=== PATIENT | female | born 1975 | race Caucasian/White ===

== ENCOUNTER → 2016-12-31 | Outpatient (CLI) | payer MEDICAID ==
[2016-12-31 17:02] LABS: BASO % 0.4 % (0.0-2.0); EOS # 0.1 (0.0-0.7); EOS % 0.9 % (0-4.0); GRAN # 5.8 (1.4-6.5); GRAN % 63.3 % (42.2-75.2); HEMATOCRIT 42.2 % (37.0-47.0); HEMOGLOBIN 14.2 g/dl (12.5-16.0); LYMPH # 2.6 (1.2-3.4); LYMPH % 28.4 % (20.0-51.0); MEAN CELL VOLUME 90 fl (80.0-100.0); MEAN CORPUSCULAR HEMOGLOBIN 30 pg (27.0-31.0); MEAN CORPUSCULAR HGB CONC 34 g/dl (33.0-37.0); MEAN PLATELET VOLUME 11.3 fl (7.4-10.4); MONO # 0.6 (0.1-0.6); MONO % 6.8 % (1.7-9.3); PLATELET COUNT 321 K/mm3 (130-400); RED BLOOD COUNT 4.68 M/mm3 (4.10-5.30); WHITE BLOOD COUNT 9.1 K/mm3 (4.8-10.8)
[2016-12-31 17:14] LABS: ADJUSTED CALCIUM 9.5 mg/dL (8.4-10.2); ALBUMIN 4.3 gm/dL (3.5-5.0); BILIRUBIN,TOTAL 0.6 mg/dL (0.0-1.0); CALCIUM 9.7 mg/dL (8.4-10.2); CHOLESTEROL RISK RATIO 4.3; CREATININE, serum 0.77 mg/dL (0.52-1.25); POTASSIUM 3.9 mmol/L (3.4-5.0); TOTAL PROTEIN 7.4 gm/dL (6.4-8.2)
[2016-12-31 17:28] LABS: HIV 1/2 Antibodies Non-Reactive; HIV-1p24 Antigen Non-Reactive
[2016-12-31 17:44] LABS: TSH w REFLEX 1.64 uIU/mL (0.465-4.680)
[2017-01-01 02:11] LABS: RPR (VDRL) Non-reactive (())
== END ==
LOC: COL.LAB 15:14
PROVIDERS: Family Medicine
DX: Z11.3 Encounter for screening for infections with a predominantly sexual mode of transmission (principal); F32.9 Major depressive disorder, single episode, unspecified; Z83.79 Family history of other diseases of the digestive system

== ENCOUNTER → 2018-03-12 | Outpatient (CLI) | payer MEDICAID | LOC: ZCOL.LAB 18:25 | DX: N89.8 Other specified noninflammatory disorders of vagina (principal) ==

== ENCOUNTER → 2018-04-15 | Outpatient (CLI) | payer BC, MEDICAID | LOC: MC.RAD 10:56 | DX: R92.2 Inconclusive mammogram (principal) | CPT/HCPCS: G0279 ==

== ENCOUNTER 2018-05-26 20:38 | Emergency (ER) | payer MEDICAID ==
[~2018-05-26] VITALS: Ht 175.3 cm; Wt 109.1 kg
[2018-05-26 20:40] VITALS: BP 130/92; TEMP 98
[2018-05-26 21:52] LABS: COLLECTION METHOD CLEAN CATCH
[2018-05-26 22:06] LABS: MUCOUS Present /lpf; PH 5 (5-8); URINE APPEARANCE Hazy; URINE BACTERIA None Seen /hpf; URINE BILIRUBIN Negative (NEGATIVE); URINE BLOOD 1+ (NEGATIVE); URINE COLOR Yellow; URINE GLUCOSE Negative (NEGATIVE); URINE KETONE Negative (NEGATIVE); URINE LEUKOCYTE ESTERASE Negative (NEGATIVE); URINE NITRATE Negative (NEGATIVE); URINE PROTEIN(semi-quant) Negative (NEGATIVE); URINE UROBILINOGEN Negative (NEGATIVE)
[2018-05-26] MEDS ORDERED: ZITHROMAX Z PA250 MG PO (22:13)
[2018-05-26 22:44] VITALS: PULSE 90
== END 2018-05-26 23:26 | disposition home or self-care (01) ==
LOC: COL.ER 20:38
PROVIDERS: Physician Assistant
DX: J06.9 Acute upper respiratory infection, unspecified (principal)

== ENCOUNTER 2019-04-15 06:04 | Day surgery (SDC) | payer BC ==
[~2019-04-15] VITALS: Ht 175.3 cm; Wt 116.5 kg
[~2019-04-15 06:04] MED LIST: ZITHROMAX Z PA250 MG PO
[2019-04-15 06:36] VITALS: BP 141/84; PULSE 69; TEMP 97.6
[2019-04-15] MEDS ORDERED: CELEXA40 MG PO (06:51)
[2019-04-15] MEDS ORDERED: PRIL40 PO (06:52)
--- NOTE | 2019-04-15 06:54 | NUR ---
TO RM 1 AT 0620- CALL LIGHT IN REACH AUNT AND UNCLE HERE TO TAKE PATIENT HOME
[2019-04-15 07:55] VITALS: BP 135/87; PULSE 77; TEMP 97.6
--- NOTE | 2019-04-15 07:55 | NUR ---
Patient arrives to [facility] via cart, accompanied by [facility] RN Britt. Bedside report received. She is drowsy, easily aroused to voice. She ambulates with 2:1 assist to the chair in the room. Monitoring is applied - VSS on room air. Lights are dimmed, given a warm blanket, reclined in chair for comfort. Her aunt is at the bedside. Call light in reach.
[2019-04-15 08:10] VITALS: BP 127/88; PULSE 66
--- NOTE | 2019-04-15 08:10 | NUR ---
VSS and WNL on room air. Patient remains very sleepy. She is easily aroused to voice. She denies pain or nausea. She is offered and receives water and ice cream to eat. Will continue to monitor.
[2019-04-15 08:25] VITALS: BP 141/60; PULSE 68
--- NOTE | 2019-04-15 08:25 | NUR ---
Patient is more alert. Sitting up in chair, awake, chatting with family. She requests and receives more ice cream and water. Denies pain, nausea, or need.
[2019-04-15 08:40] VITALS: BP 143/90; PULSE 66
--- NOTE | 2019-04-15 09:10 | NUR ---
0840 Dr. Murray is at the bedside and talks with the patient. 0850 PIV removed with catheter intact and hemostasis achieved. 0910 Patient has met discharge criteria. Discharge instructions discussed, denies any questions, and verbalizes understanding. Changes to clothing independently. Escorted to exit via wheelchair by staff. Discharged to home with ride in private vehicle at 0910.
== END 2019-04-15 09:10 | disposition home or self-care (01) ==
LOC: SDCO 06:04
DX: K57.30 Diverticulosis of large intestine without perforation or abscess without bleeding (principal); K92.1 Melena; R19.7 Diarrhea, unspecified; K64.1 Second degree hemorrhoids; K22.10 Ulcer of esophagus without bleeding; K21.0 Gastro-esophageal reflux disease with esophagitis; D13.0 Benign neoplasm of esophagus; K25.7 Chronic gastric ulcer without hemorrhage or perforation
CPT/HCPCS: J2250; J3010

== ENCOUNTER 2020-04-08 16:51 | Emergency (ER) | payer BC ==
[~2020-04-08] VITALS: Ht 175.3 cm; Wt 97.7 kg
[~2020-04-08 16:51] MED LIST changes: +CELEXA40 MG PO; +PRIL40 PO
[2020-04-08 16:58] VITALS: TEMP 97.2
[2020-04-08] MEDS ORDERED: OTEZLA PO (17:11)
[2020-04-08] MEDS ORDERED: TOPROL XL 25MG25 MG (17:12)
[2020-04-08] MEDS ORDERED: ASPIRIN 81M81 MG/TA2 PO (17:12)
[2020-04-08 17:28] LABS: BASO # 0.1 (0.0-0.2); BASO % 0.6 % (0.0-2.0); EOS # 0.2 (0.0-0.7); EOS % 1.3 % (0-4.0); GRAN # 7.4 (1.4-6.5); GRAN % 61.7 % (42.2-75.2); HEMOGLOBIN 11.3 g/dl (12.5-16.0); LYMPH # 3.6 (1.2-3.4); LYMPH % 29.8 % (20.0-51.0); MEAN CELL VOLUME 82 fl (80.0-100.0); MEAN CORPUSCULAR HEMOGLOBIN 26 pg (27.0-31.0); MEAN CORPUSCULAR HGB CONC 32 g/dl (33.0-37.0); MEAN PLATELET VOLUME 9.4 fl (7.4-10.4); MONO # 0.8 (0.1-0.6); MONO % 6.3 % (1.7-9.3); PLATELET COUNT 440 K/mm3 (130-400); RED BLOOD COUNT 4.32 M/mm3 (4.10-5.30); REDCELL DISTRIBUTION WIDTH-CV 14.2 % (11.5-14.5)
[2020-04-08 17:29] LABS: HEMATOCRIT 35.6 % (37.0-47.0)
[2020-04-08 17:41] LABS: ALBUMIN 3.9 gm/dL (3.5-5.0); BILIRUBIN,TOTAL 0.3 mg/dL (0.0-1.0); C-REACTIVE PROTEIN 4.5 mg/dL (0.0-0.9); CREATININE, serum 0.67 (0.52-1.25); POTASSIUM 3.9 mmol/L (3.4-5.0); TOTAL PROTEIN 7.5 gm/dL (6.4-8.2)
[2020-04-08 18:47] LABS: SYNOVIAL FL. MONONUCLEAR 20.5 % (0-75); SYNOVIAL FLUID RBC 1000 /mm3 (0-0); SYNOVIAL FLUID WBC 21000 /mm3 (200-600)
[2020-04-08 18:49] LABS: SYNOVIAL FLUID APPEARANCE CLOUDY; SYNOVIAL FLUID COLOR YELLOW
[2020-04-08 19:14] VITALS: BP 137/70; PULSE 77
== END 2020-04-08 19:15 | disposition home or self-care (01) ==
LOC: COL.ER 16:51
PROVIDERS: Family Medicine
DX: M25.462 Effusion, left knee (principal); Z79.82 Long term (current) use of aspirin
CPT/HCPCS: J1650

== ENCOUNTER → 2020-04-09 | Outpatient (CLI) | payer BC ==
[~2020-04-09] MED LIST changes: +ASPIRIN 81M81 MG/TA2 PO; +OTEZLA PO; +TOPROL XL 25MG25 MG
== END ==
LOC: COL.VAS 12:27
DX: M25.562 Pain in left knee (principal)

== ENCOUNTER 2021-10-04 16:14 | Emergency (ER) | payer BC ==
[~2021-10-04] VITALS: Ht 172.7 cm; Wt 125.0 kg
[2021-10-04 16:34] VITALS: TEMP 98.3
[2021-10-04] MEDS ORDERED: SUDAFED30 MG PO ×3 (18:17→18:38)
[2021-10-04] MEDS ORDERED: NASONEX SPRAY17 GM NS ×3 (18:17→18:38)
[2021-10-04 18:32] VITALS: BP 119/84; PULSE 106
== END 2021-10-04 18:32 | disposition home or self-care (01) ==
LOC: COL.ER 16:14
DX: J20.9 Acute bronchitis, unspecified (principal); J04.0 Acute laryngitis
CPT/HCPCS: J8540